=== PATIENT | male | born 1950 | race African-American/Black ===

== ENCOUNTER 2018-07-15 19:53 | Inpatient (IN) | payer MEDICARE, MEDICAID ==
[~2018-07-15] VITALS: Ht 180.3 cm; Wt 83.9 kg
[~2018-07-15 19:53] MED LIST: LISINOPRIL10 MG GT; MULTI-DELYN237 ML GT; NITRO-BID1 GM TOPIC; NORMODYNE200 MG GT; NORVASC5 MG GT; TRAMADOL HCL50 MG GT; VITAMIN C500 M1 GT
[2018-07-15] MEDS ORDERED: Pantoprazole Inj IV ONE (20:15)
[2018-07-15 20:25] VITALS: BP 144/67
--- NOTE | 2018-07-15 20:25 | NUR ---
ED Nurse Note: pt brought in by ambulance from [facility] c/o diarrhea x 2 since yesterday per EMS report, pt denies diarrhea at this time. pt AA&ox1, gcs=15, confused, skin warm and dry, resp even and unlabored on RA, -n/v/d, +gtube, leftside weakness noted, on bedrest, NSR, vss, on cardiac technologist, will cont monitor.
[2018-07-15] MEDS ORDERED: TYLENOL EXTRA500 MG GT (21:10)
[2018-07-15] MEDS ORDERED: METFORMIN HCL1000 M1 ORAL (21:10)
[2018-07-15] MEDS ORDERED: JARDIANCE PO (21:10)
[2018-07-15] MEDS ORDERED: COLACE100 MG GT (21:10)
[2018-07-15] MEDS ORDERED: ACETAMINOPHEN325 M1 GT (21:10)
[2018-07-15] MEDS ORDERED: FLEET ENEMA133 ML RECTAL (21:10)
[2018-07-15] MEDS ORDERED: ARTIFICIAL TEAR15 ML BOTH EYES (21:10)
[2018-07-15] MEDS ORDERED: DUONEB 0.5-3(2.53 ML HHN (21:10)
[2018-07-15 21:21] LABS: ANION GAP 11 mmol/L (5-15); BLOOD UREA NITROGEN 10 mg/dL (7-18); CALCIUM 9.9 MG/DL (8.5-10.1); CARBON DIOXIDE 21 MMOL/L (21-32); CHLORIDE 106 MMOL/L (98-107); CREATININE 0.8 MG/DL (0.55-1.30); POTASSIUM 5.4 MMOL/L (3.5-5.1); SODIUM 138 MMOL/L (136-145)
[2018-07-15 21:25] LABS: ALANINE AMINOTRANSFERASE 134 U/L (12-78); ALBUMIN 3.7 G/DL (3.4-5.0); ALBUMIN/GLOBULIN RATIO 0.7 (1.0-2.7); ALKALINE PHOSPHATASE 80 U/L (46-116); ASPARTATE AMINO TRANSFERASE 109 U/L (15-37); BILIRUBIN,TOTAL 0.7 MG/DL (0.2-1.0)
--- NOTE | 2018-07-15 21:30 | NUR ---
ED Nurse Note: PT CLEANED AND CHANGED.
[2018-07-15 21:31] LABS: BASOPHILS % (AUTO) 0.9 % (0.0-2.0); EOSINOPHILS % (AUTO) 1.5 % (0.0-3.0); HEMOGLOBIN 16.6 G/DL (14.2-18.0); LYMPHOCYTES % (AUTO) 23.4 % (20.0-45.0); MEAN CORPUSCULAR VOLUME 80 FL (80-99); MONOCYTES % (AUTO) 6.8 % (1.0-10.0); NEUTROPHILS % (AUTO) 67.4 % (45.0-75.0); PLATELET COUNT 228 K/UL (150-450); RED BLOOD COUNT 6.41 M/UL (4.70-6.10); RED CELL DISTRIBUTION WIDTH 13.4 % (11.6-14.8)
--- NOTE | 2018-07-15 22:26 | NUR ---
NURSE NOTES: Received report from JESUSITA Hamilton (ER), pt with admitted diarrhea X 2 possible GI Bleed, no diarrhea episodes in ER per Joy pt A/O X 1 to self, confused, skin intact & Gtube flushes per Joy pt with RT hand 20g saline lock, room air, will check vitals, contact Dr. Chao for orders when pt is on the floor.
--- NOTE | 2018-07-15 22:27 | Emergency Room Report ---
History of Present Illness General Chief Complaint: Gastrointestinal Illness Source: Patient, Medical Record, EMS Present Illness HPI Patient presents emergency department today complaint 2 days of coffee-ground emesis associated epigastric pain. He denies any diarrhea. Denies any melena. Symptoms noted to be moderate to severe. Patient's currently in a prison. Patient's primary care physician is Dr. Saige Sifuentes. Symptoms noted to moderate. Patient denies any fever cough runny nose sore throat dysuria or urinary frequency. No prior episodes was noted. Patient is not very good historian. Patient does have a G-tube which is used to infuse water. He is able to eat regular food orally. No other modifying factors. No other associated signs and symptoms. No other complaints were noted. Allergies: Coded Allergies: No Known Allergies (Unverified , 09/28/13) Patient History Past Medical History: DM, HTN, CAD, CVA/TIA, other - BPH Past Surgical History: other - G-tube Social History: Denies: smoking, alcohol use, drug use Reviewed Nursing Documentation: PMH: Agreed; PSxH: Agreed Nursing Documentation-PMH Past Medical History: No History, Except For Hx Cardiac Problems: Yes Hx Hypertension: Yes Hx Diabetes: Yes Hx Cancer: Yes - BPH Hx Gastrointestinal Problems: Yes - G-tube Hx Neurological Problems: Yes Hx Cerebrovascular Accident: Yes - tia Hx Traumatic Brain Injury: Yes - CSF; IHF Hx Dysphasia: Yes 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 Review of Systems All Other Systems: negative except mentioned in HPI Physical Exam Vital Signs Date Time Temp Pulse Resp B/P (MAP) Pulse Ox O2 Delivery O2 Flow Rate FiO2 07/15/18 19:57 98.2 102 20 142/93 94 Room Air Sp02 EP Interpretation: reviewed, normal General Appearance: normal inspection, well appearing, no apparent distress, alert Head: atraumatic Eyes: bilateral eye normal inspection ENT: normal ENT inspection, hearing grossly normal, normal voice Neck: normal inspection, full range of motion, supple, no bony tend Respiratory: normal inspection, lungs clear, normal breath sounds, no respiratory distress, no retraction, no wheezing Cardiovascular #1: regular rate, rhythm, no edema Gastrointestinal: normal inspection, normal bowel sounds, non tender, soft, no guarding, no hernia, other - G-tube in place Genitourinary: no CVA tenderness Musculoskeletal: normal inspection, back normal, normal range of motion Neurologic: normal inspection, alert, responsive, speech normal Psychiatric: normal inspection, judgement/insight normal, mood/affect normal Skin: normal inspection, normal color, no rash Medical Decision Making Diagnostic Impression: Primary Impression: GI bleed Additional Impression: Coffee ground emesis ER Course Patient presents emergency department today complaining of vomiting. Differential considerations include acute Lexxel abnormality, gastritis, pancreatitis, cholecystitis, bowel obstruction just name a few.Given the severity of the patient's presentation I felt this is a highly complex patient. This patient required extensive workup. Patient's laboratory workup was not impressive. CAT scan was negative. However given patient's history of coffee- ground emesis and advanced age I felt the patient required admission for further monitoring and workup. Case was discussed with Dr. Saige Sifuentes patient will be admitted for further treatment. Labs Test 07/15/18 20:50 White Blood Count 7.0 K/UL (4.8-10.8) Red Blood Count 6.41 M/UL (4.70-6.10) Hemoglobin 16.6 G/DL (14.2-18.0) Hematocrit 51.0 % (42.0-52.0) Mean Corpuscular Volume 80 FL (80-99) Mean Corpuscular Hemoglobin 25.8 PG (27.0-31.0) Mean Corpuscular Hemoglobin Concent 32.4 G/DL (32.0-36.0) Red Cell Distribution Width 13.4 % (11.6-14.8) Platelet Count 228 K/UL (150-450) Mean Platelet Volume 7.5 FL (6.5-10.1) Neutrophils (%) (Auto) 67.4 % (45.0-75.0) Lymphocytes (%) (Auto) 23.4 % (20.0-45.0) Monocytes (%) (Auto) 6.8 % (1.0-10.0) Eosinophils (%) (Auto) 1.5 % (0.0-3.0) Basophils (%) (Auto) 0.9 % (0.0-2.0) Prothrombin Time 10.8 SEC (9.30-11.50) Prothromb Time International Ratio 1.0 (0.9-1.1) Activated Partial Thromboplast Time 27 SEC (23-33) Sodium Level 138 MMOL/L (136-145) Potassium Level 5.4 MMOL/L (3.5-5.1) Chloride Level 106 MMOL/L (98-107) Carbon Dioxide Level 21 MMOL/L (21-32) Anion Gap 11 mmol/L (5-15) Blood Urea Nitrogen 10 mg/dL (7-18) Creatinine 0.8 MG/DL (0.55-1.30) Estimat Glomerular Filtration Rate > 60 mL/min (>60) Glucose Level 126 MG/DL (74-106) Calcium Level 9.9 MG/DL (8.5-10.1) Total Bilirubin 0.7 MG/DL (0.2-1.0) Aspartate Amino Transf (AST/SGOT) 109 U/L (15-37) Alanine Aminotransferase (ALT/SGPT) 134 U/L (12-78) Alkaline Phosphatase 80 U/L (46-116) Troponin I 0.012 ng/mL (0.000-0.056) Total Protein 9.1 G/DL (6.4-8.2) Albumin 3.7 G/DL (3.4-5.0) Globulin 5.4 g/dL Albumin/Globulin Ratio 0.7 (1.0-2.7) Lipase 116 U/L (73-393) Chest X-Ray Diagnostic Results Chest X-Ray Diagnostic Results : Chest X-Ray Ordered: Yes # of Views/Limited/Complete: 1 View Indication: Shortness of Breath EP Interpretation: Yes Interpretation: no consolidation, no effusion, no pneumothorax, no acute cardiopulmonary disease Impression: No acute disease Electronically Signed by: Electronically signed by Dann Read MD CT/MRI/US Diagnostic Results CT/MRI/US Diagnostic Results : Imaging Test Ordered: CT scan and pelvis: Negative Last Vital Signs Date Time Temp Pulse Resp B/P (MAP) Pulse Ox O2 Delivery O2 Flow Rate FiO2 07/15/18 20:25 98.2 82 18 144/67 98 Room Air Status: improved Disposition: ADMITTED INPATIENT Condition: Serious Referrals: Marielena Velarde MD (PCP) Dann Read MD Jul 15, 2018 22:27
--- NOTE | 2018-07-15 22:28 | NUR ---
ED Nurse Note: REPORT GIVEN TO JESUSITA TAYLOR FROM [facility].
[2018-07-15 22:30] VITALS: BP 142/68
[2018-07-15 22:32] LABS: APPEARANCE,URINE CLEAR; BILIRUBIN, URINE NEGATIVE (NEGATIVE); GLUCOSE, URINE (UA) 4+ (NEGATIVE); KETONES,URINE 2+ (NEGATIVE); LEUKOCYTE ESTERASE ,URINE NEGATIVE (NEGATIVE); NITRITE,URINE NEGATIVE (NEGATIVE); PH,URINE 5 (4.5-8.0); PROTEIN,URINE 3+ (NEGATIVE); UROBILINOGEN,URINE NORMAL MG/DL (0.0-1.0)
[2018-07-15 22:33] LABS: COLOR,URINE YELLOW
--- NOTE | 2018-07-15 22:41 | NUR ---
ED Nurse Note: PT TRANSFERRED TO [place], ALL BELONGINGS SENT W/ PT. PT VSS, DAUGHTER AT THE BEDSIDE. IV INTACT AND PATENT.
--- NOTE | 2018-07-15 22:45 | NUR ---
NURSE NOTES: Pt brought up from ER, pt had no belongings, sheet signed by daughter Kerline, pt vitals taken, daughter at bedside able to answer questions about her father, pt A/O 1-2 confused at times, bed in lowest position, call light within reach, will continue to monitor, called Dr Velarde awaiting admitting orders. Addendum: 07/15/18 at 2335 by FISH FLAHERTY RN NURSE NOTES: pt Gtube in place
[2018-07-16] VITALS: BP 131/91
[2018-07-16 04:00] VITALS: BP 131/93
[2018-07-16 07:06] LABS: BASOPHILS % (AUTO) 0.8 % (0.0-2.0); EOSINOPHILS % (AUTO) 0.6 % (0.0-3.0); HEMATOCRIT 47.1 % (42.0-52.0); HEMOGLOBIN 15.5 G/DL (14.2-18.0); LYMPHOCYTES % (AUTO) 28.7 % (20.0-45.0); MEAN CORPUSCULAR VOLUME 80 FL (80-99); MONOCYTES % (AUTO) 7.1 % (1.0-10.0); NEUTROPHILS % (AUTO) 62.9 % (45.0-75.0); PLATELET COUNT 219 K/UL (150-450); RED BLOOD COUNT 5.89 M/UL (4.70-6.10); RED CELL DISTRIBUTION WIDTH 13.7 % (11.6-14.8); WHITE BLOOD COUNT 7.2 K/UL (4.8-10.8)
[2018-07-16 07:23] LABS: ANION GAP 10 mmol/L (5-15); BLOOD UREA NITROGEN 13 mg/dL (7-18); CALCIUM 9.4 MG/DL (8.5-10.1); CARBON DIOXIDE 22 MMOL/L (21-32); CHLORIDE 108 MMOL/L (98-107); POTASSIUM 3.9 MMOL/L (3.5-5.1); SODIUM 140 MMOL/L (136-145)
--- NOTE | 2018-07-16 07:29 | NUR ---
HAND-OFF: Report given to JESUSITA Franco.
--- NOTE | 2018-07-16 07:40 | NUR ---
NURSE NOTES: Patient on room air, no sign of distress and shortness of breath; NPO sing on head of the bed; IV R-Hand running fluid; bed at lowest position, side rails up x2, breaks engaged; will check blood sugar as scheduled. Call light within reach; will keep monitoring.
[2018-07-16 08:00] VITALS: BP 126/87
[2018-07-16] MEDS: Pantoprazole Inj IVP SCH (10:00)
[2018-07-16 12:00] VITALS: BP_SYST 118; BP_SYST 141; BP_DIAS 78; BP_DIAS 81
[2018-07-16] MEDS ORDERED: 1/2 NS 1000ml IV ONE (15:48)
[2018-07-16 16:00] VITALS: BP 120/81
--- NOTE | 2018-07-16 16:02 | NUR ---
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
--- NOTE | 2018-07-16 19:35 | NUR ---
HAND-OFF: Report given to JESUSITA Parsons.
--- NOTE | 2018-07-16 19:36 | NUR ---
NURSE NOTES: Pt received awake, not as talkative as he was last night, IV in place but keeps beeping will change tubing, no c/o pain or signs of distress at the moment, call light within reach, bed in lowest position, visitor at bedside, will continue to monitor.
[2018-07-16 20:00] VITALS: BP 137/87
--- NOTE | 2018-07-16 21:30 | History and Physical Report ---
DATE OF ADMISSION: 07/15/2018 CHIEF COMPLAINT: Coffee-ground emesis. HISTORY OF PRESENT ILLNESS: This is a 68-year-old male from [facility], who was transferred by paramedics due to 2 days of coffee-ground emesis. The patient is nonverbal. Information is retrieved from the nursing staff. The patient has a G-tube. The patient himself is confused and unable to give any further information. PAST MEDICAL HISTORY: 1. Type 2 diabetes mellitus. 2. Hypertensive cardiovascular disease. 3. Coronary artery disease. 4. Status post CVA. MEDICATIONS: 1. Tube feeding. 2. Multivitamins. 3. Artificial tears. 4. Colace. 5. DuoNeb inhalation. 6. Fleet Enema as needed. 7. Jardiance. 8. Lisinopril. 9. Metformin. 10. Nitro-Bid ointment. 11. Norvasc. 12. Trandate. 13. Tylenol p.r.n. ALLERGIES: No known allergies. SOCIAL HISTORY: Unable to obtain due to his mental status. FAMILY HISTORY: Unable to obtain due to his mental status. REVIEW OF SYSTEMS: Unable to obtain due to his mental status. PHYSICAL EXAMINATION: GENERAL: This is an elderly male, who is in no acute distress. VITAL SIGNS: Blood pressure 118/81, pulse 85 and regular, respirations 20, and temperature 98.5. HEENT: The head is normocephalic and atraumatic. Pupils are equal, round, and reactive to light and accommodation consensually. NECK: Supple. Trachea midline. There was no lymphadenopathy or thyromegaly. LUNGS: Clear to auscultation and percussion. HEART: Regular rate and rhythm without rubs, murmurs, or gallops. ABDOMEN: Soft and nontender. Bowel sounds were active. There is a G-tube. EXTREMITIES: No clubbing, cyanosis, or edema. NEUROLOGICAL: He is confused, but responsive. There were no gross focal findings. LABORATORY AND ANCILLARY DATA: CBC is within normal limits. Chemistry, yesterday potassium 5.4 and today is 3.9, otherwise within normal limits. ASSESSMENT: 1. Gastrointestinal bleed, etiology unclear. 2. Type 2 diabetes mellitus. 3. Hypertensive cardiovascular disease. 4. Coronary artery disease. 5. Status post CVA. PLAN: 1. Keep NPO. 2. GI consult. Marielena Velarde M.D. DR: CANDICE JOB#: [id number] CC:
--- NOTE | 2018-07-16 23:00 | Consultation ---
DATE OF CONSULTATION: 07/16/2018 GASTROENTEROLOGY CONSULTATION CONSULTING PHYSICIAN: Manuel Carrizales M.D. REFERRING PHYSICIAN: Marielena Velarde M.D. CHIEF COMPLAINT: Coffee-ground emesis. HISTORY OF PRESENT ILLNESS: Most of the history is per at the bedside. This is a very pleasant 68-year-old male, [facility] patient, with history of CVA, dysphagia, has a G-tube, but he actually eats according to the pureed diet. The G-tube has been only used for flushing and for medication. Admitted to the hospital with coffee-ground emesis and also the patient has been having complaint of diarrhea for the last few days. The diarrhea is nonbloody. There are no recent p.o. antibiotics, but the patient was given some antibiotics for his eyes. PAST MEDICAL HISTORY: 1. Diabetes. 2. Hypertension. 3. Coronary artery disease. 4. CVA. 5. Dysphagia, G-tube placement. 6. BPH. ALLERGIES: No known drug allergies. MEDICATIONS: Please see medication reconciliation list. FAMILY HISTORY: Noncontributory. REVIEW OF SYSTEMS: Limited. SOCIAL HISTORY: Currently lives in a [facility]. No recent history of tobacco, alcohol, or drug abuse. PHYSICAL EXAMINATION: VITAL SIGNS: Temperature 98.5, pulse rate 85, respirations 20, and blood pressure is 118/81. HEENT: Normocephalic and atraumatic. No scleral icterus. NECK: Supple. No obvious evidence of lymphadenopathy. CARDIOVASCULAR: Regular rate and rhythm. Plus S1 and S2. No obvious murmur. LUNGS: Clear to auscultation bilaterally. ABDOMEN: Positive bowel sounds. Soft and nontender. No rebound. No guarding. No peritoneal signs. G-tube in place. EXTREMITIES: No cyanosis, no clubbing, no edema. LABORATORY DATA: White count 7.2, hemoglobin 16, hematocrit 47, and platelet count 219,000. Chem-7, sodium 140, potassium , BUN is 13, creatinine is 1.0, glucose is 110. AST of 109, ALT of 134. ASSESSMENT: 1. Coffee-ground emesis. 2. Dysphagia with G-tube. 3. Abnormal liver function tests. 4. Diarrhea. PLAN: 1. Given stable hemoglobin and hematocrit, we are going to start the patient on diet. 2. Plan for the endoscopy on Wednesday to rule out upper GI bleeding. Discussed with and she agreed and we will place the patient on Protonix. 3. Abnormal liver function tests. Review of the chart in 2009 showed also the patient at that time had abnormal liver function tests. We will plan to send serology for hepatitis, abdominal ultrasound, and repeat liver function tests for tomorrow. 4. In terms of diarrhea, we are going to send the stool studies. I want to thank Dr. Velarde for this kind referral. Manuel Carrizales M.D. DR: Nate JOB#: [id number] CC: Marielena Velarde M.D.; Fax#: [phone]
[2018-07-17] VITALS: BP 130/92
[2018-07-17 04:00] VITALS: BP 120/80
[2018-07-17 06:49] LABS: EOSINOPHILS % (AUTO) 2.1 % (0.0-3.0); HEMATOCRIT 45.8 % (42.0-52.0); HEMOGLOBIN 14.7 G/DL (14.2-18.0); LYMPHOCYTES % (AUTO) 51.2 % (20.0-45.0); MEAN CORPUSCULAR VOLUME 81 FL (80-99); MONOCYTES % (AUTO) 11.1 % (1.0-10.0); NEUTROPHILS % (AUTO) 34.6 % (45.0-75.0); PLATELET COUNT 225 K/UL (150-450); RED BLOOD COUNT 5.67 M/UL (4.70-6.10); RED CELL DISTRIBUTION WIDTH 13.7 % (11.6-14.8); WHITE BLOOD COUNT 5.4 K/UL (4.8-10.8)
[2018-07-17 06:50] LABS: INR 1.1 (0.9-1.1)
[2018-07-17 06:59] LABS: PHOSPHORUS 3.1 MG/DL (2.5-4.9)
--- NOTE | 2018-07-17 07:09 | NUR ---
HAND-OFF: Report given to JESUSITA Franco.
--- NOTE | 2018-07-17 07:10 | NUR ---
NURSE NOTES: Patient awake, confused; on room air, no sign of shortness of breath, no sign of distress; NPO and sign of the top of the bed; IV R-wrist fluid running; heel protector on both lower extremities in place; G-Tube in place, flushes well; bed at lowest position, side rails up x2, breaks engaged, bed alarm on. Will keep monitoring blood sugar as scheduled and will keep monitoring patient. OB stool pending.
[2018-07-17 07:11] LABS: ALANINE AMINOTRANSFERASE 115 U/L (12-78); ALBUMIN 3.2 G/DL (3.4-5.0); ALBUMIN/GLOBULIN RATIO 0.7 (1.0-2.7); ALKALINE PHOSPHATASE 63 U/L (46-116); ANION GAP 11 mmol/L (5-15); ASPARTATE AMINO TRANSFERASE 93 U/L (15-37); BILIRUBIN,TOTAL 0.6 MG/DL (0.2-1.0); BLOOD UREA NITROGEN 17 mg/dL (7-18); CALCIUM 9.2 MG/DL (8.5-10.1); CARBON DIOXIDE 23 MMOL/L (21-32); CHLORIDE 109 MMOL/L (98-107); CREATININE 1.1 MG/DL (0.55-1.30); POTASSIUM 3.8 MMOL/L (3.5-5.1); SODIUM 143 MMOL/L (136-145)
[2018-07-17 08:00] VITALS: BP 126/77
[2018-07-17] MEDS: Pantoprazole Inj IVP SCH (09:20)
--- NOTE | 2018-07-17 11:36 | General Progress Note ---
Assessment/Plan Problem List: (1) Elevated LFTs ICD Codes: R94.5 - Abnormal results of liver function studies SNOMED: 248586189, 422575847 (2) GT (3) Coffee ground emesis ICD Codes: K92.0 - Hematemesis SNOMED: 18951674 Assessment/Plan ppi stable H&H pending EGd in AM trending down LFTS fu hepatitis panel fu abd us f Subjective ROS Limited/Unobtainable: No Allergies: Coded Allergies: No Known Allergies (Unverified , 09/28/13) Objective Last 24 Hour Vital Signs Date Time Temp Pulse Resp B/P (MAP) Pulse Ox O2 Delivery O2 Flow Rate FiO2 07/17/18 09:00 Room Air 07/17/18 08:00 97.1 71 20 126/77 (93) 98 07/17/18 04:00 99.1 78 18 120/80 (93) 95 07/17/18 00:00 97.8 84 18 130/92 (105) 94 84 07/16/18 21:00 Room Air 07/16/18 20:00 99.5 86 17 137/87 (104) 96 07/16/18 16:00 98.4 79 20 120/81 (94) 99 79 07/16/18 12:00 98.5 85 20 118/81 (93) 96 85 Intake and Output 07/16/18 07/17/18 19:00 07:00 Intake Total 715 ml 780 ml Balance 715 ml 780 ml Intake IV Total 715 ml 780 ml # Voids 2 Laboratory Tests 07/17/18 05:10: White Blood Count 5.4, Red Blood Count 5.67, Hemoglobin 14.7, Hematocrit 45.8, Mean Corpuscular Volume 81, Mean Corpuscular Hemoglobin 25.9L, Mean Corpuscular Hemoglobin Concent 32.0, Red Cell Distribution Width 13.7, Platelet Count 225, Mean Platelet Volume 7.6, Neutrophils (%) (Auto) 34.6L, Lymphocytes (%) (Auto) 51.2H, Monocytes (%) (Auto) 11.1H, Eosinophils (%) (Auto) 2.1, Basophils (%) ( Auto) 1.0, Prothrombin Time 11.3, Prothromb Time International Ratio 1.1, Activated Partial Thromboplast Time 28, Sodium Level 143, Potassium Level 3.8, Chloride Level 109H, Carbon Dioxide Level 23, Anion Gap 11, Blood Urea Nitrogen 17, Creatinine 1.1, Estimat Glomerular Filtration Rate > 60, Glucose Level 79, Calcium Level 9.2, Phosphorus Level 3.1, Magnesium Level 1.7L, Total Bilirubin 0.6, Aspartate Amino Transf (AST/SGOT) 93H, Alanine Aminotransferase (ALT/SGPT) 115H, Alkaline Phosphatase 63, Total Protein 7.7, Albumin 3.2L, Globulin 4.5, Albumin/Globulin Ratio 0.7L, Amylase Level 57, Lipase 85, Hepatitis A IgM Antibody [Pending], Hepatitis B Surface Antigen [Pending], Hepatitis B Core IgM Antibody [Pending], Hepatitis C Antibody [Pending] Height (Feet): 5 Height (Inches): 11.00 Weight (Pounds): 185 General Appearance: no apparent distress EENT: normal ENT inspection Neck: supple Cardiovascular: normal rate Respiratory/Chest: decreased breath sounds Abdomen: normal bowel sounds, non tender, soft Extremities: non-tender Manuel Carrizales MD Jul 17, 2018 11:36
--- NOTE | 2018-07-17 11:49 | NUR ---
NURSE NOTES: Patient's Albumin 3.2 and Magnesium 1.7 result is reported to MD Stoll. Will keep monitoring.
[2018-07-17 12:00] VITALS: BP 123/67
--- NOTE | 2018-07-17 12:35 | General Progress Note ---
Assessment/Plan Assessment/Plan GI bleed -per GI Needs bedside swallow Subjective Allergies: Coded Allergies: No Known Allergies (Unverified , 09/28/13) Subjective No new c/o Objective Last 24 Hour Vital Signs Date Time Temp Pulse Resp B/P (MAP) Pulse Ox O2 Delivery O2 Flow Rate FiO2 07/17/18 09:00 Room Air 07/17/18 08:00 97.1 71 20 126/77 (93) 98 07/17/18 04:00 99.1 78 18 120/80 (93) 95 07/17/18 00:00 97.8 84 18 130/92 (105) 94 84 07/16/18 21:00 Room Air 07/16/18 20:00 99.5 86 17 137/87 (104) 96 07/16/18 16:00 98.4 79 20 120/81 (94) 99 79 Intake and Output 07/16/18 07/17/18 19:00 07:00 Intake Total 715 ml 780 ml Balance 715 ml 780 ml Intake IV Total 715 ml 780 ml # Voids 2 Laboratory Tests 07/17/18 05:10: White Blood Count 5.4, Red Blood Count 5.67, Hemoglobin 14.7, Hematocrit 45.8, Mean Corpuscular Volume 81, Mean Corpuscular Hemoglobin 25.9L, Mean Corpuscular Hemoglobin Concent 32.0, Red Cell Distribution Width 13.7, Platelet Count 225, Mean Platelet Volume 7.6, Neutrophils (%) (Auto) 34.6L, Lymphocytes (%) (Auto) 51.2H, Monocytes (%) (Auto) 11.1H, Eosinophils (%) (Auto) 2.1, Basophils (%) ( Auto) 1.0, Prothrombin Time 11.3, Prothromb Time International Ratio 1.1, Activated Partial Thromboplast Time 28, Sodium Level 143, Potassium Level 3.8, Chloride Level 109H, Carbon Dioxide Level 23, Anion Gap 11, Blood Urea Nitrogen 17, Creatinine 1.1, Estimat Glomerular Filtration Rate > 60, Glucose Level 79, Calcium Level 9.2, Phosphorus Level 3.1, Magnesium Level 1.7L, Total Bilirubin 0.6, Aspartate Amino Transf (AST/SGOT) 93H, Alanine Aminotransferase (ALT/SGPT) 115H, Alkaline Phosphatase 63, Total Protein 7.7, Albumin 3.2L, Globulin 4.5, Albumin/Globulin Ratio 0.7L, Amylase Level 57, Lipase 85, Hepatitis A IgM Antibody [Pending], Hepatitis B Surface Antigen [Pending], Hepatitis B Core IgM Antibody [Pending], Hepatitis C Antibody [Pending] Height (Feet): 5 Height (Inches): 11.00 Weight (Pounds): 185 Objective CV RR Lungs CTA Abd SNT. BS +. PEG in Marielena Velarde MD Jul 17, 2018 12:35
--- NOTE | 2018-07-17 14:55 | NUR ---
NURSE NOTES: I called Louisa Whitehead, patient's to get a consent over the phone for the Esophagogastroduodenoscopy which is planed for tomorrow by MD Stoll. I left a voice message regarding my call and left my name and call back number. Will keep trying.
--- NOTE | 2018-07-17 15:33 | NUR ---
NURSE NOTES: Patient's called back to give consent for EGD, verified by charge nurse, Richy. Consent on file.
[2018-07-17 16:00] VITALS: BP 121/73
--- NOTE | 2018-07-17 16:27 | NUR ---
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 Negative for dilated bile ducts. Incidental finding left lower pole renal cyst. IS:NS x1L IV PROTONIX 40mg IV MED/SURG STATUS
--- NOTE | 2018-07-17 19:33 | NUR ---
HAND-OFF: Report given to JESUSITA Perez.
--- NOTE | 2018-07-17 19:33 | NUR ---
NURSE NOTES: Pt received in semi fowlers position, resting at this time. Alert x2. IV site intact, patent. Bed locked in lowest position, side rails x 2. In no acute distress. Will continue to monitor. No complaints at this time. Pt on NPO status to be maintained. Will continue process plans.
[2018-07-17 20:00] VITALS: BP 135/88
[2018-07-18] VITALS (10 sets, daily range): BP systolic 114–149; BP diastolic 71–91
[2018-07-18 06:33] LABS: HEMATOCRIT 42.1 % (42.0-52.0); HEMOGLOBIN 13.3 G/DL (14.2-18.0); MEAN CORPUSCULAR VOLUME 81 FL (80-99); PLATELET COUNT 206 K/UL (150-450); RED BLOOD COUNT 5.17 M/UL (4.70-6.10); RED CELL DISTRIBUTION WIDTH 13.2 % (11.6-14.8); WHITE BLOOD COUNT 7.5 K/UL (4.8-10.8)
[2018-07-18 06:57] LABS: ALANINE AMINOTRANSFERASE 110 U/L (12-78); ALBUMIN 3.2 G/DL (3.4-5.0); ALBUMIN/GLOBULIN RATIO 0.7 (1.0-2.7); ALKALINE PHOSPHATASE 55 U/L (46-116); ANION GAP 13 mmol/L (5-15); ASPARTATE AMINO TRANSFERASE 96 U/L (15-37); BILIRUBIN,TOTAL 0.5 MG/DL (0.2-1.0); BLOOD UREA NITROGEN 17 mg/dL (7-18); CALCIUM 8.9 MG/DL (8.5-10.1); CARBON DIOXIDE 22 MMOL/L (21-32); CHLORIDE 109 MMOL/L (98-107); POTASSIUM 3.7 MMOL/L (3.5-5.1); SODIUM 144 MMOL/L (136-145)
--- NOTE | 2018-07-18 07:33 | NUR ---
HAND-OFF: Report given to JESUSITA Nicole
[2018-07-18] MEDS ORDERED: Atropine Inj 1mg/10ml Syr IV PRN (07:45)
[2018-07-18] MEDS ORDERED: DiphenhydrAMINE 50mg/ml Inj IVP PRN (07:45)
[2018-07-18] MEDS ORDERED: fentaNYL 100 mcg/2 mL IV PRN (07:45)
[2018-07-18] MEDS ORDERED: Midazolam 2mg/2ml Inj IVP PRN (07:45)
--- NOTE | 2018-07-18 07:46 | NUR ---
NURSE NOTES: Patient received in stable condition, resting in bed. Responds appropriately, breathing unlabored on room air. No signs of respiratory distress, denies pain. IV site patent, fkluids running at 65cc/hr. Bed locked in lowest position, hob elevated for aspiration precautions. SCD's on. Call light placed within reach, will continue to monitor.
--- NOTE | 2018-07-18 07:49 | Anethesia Preoperative Eval ---
Anesthesia Pre-op PMH/ROS General Date of Evaluation: Jul 18, 2018 Time of Evaluation: 07:43 Anesthesiologist: eleuterio ASA Score: ASA 4 Mallampati Score Class I : Soft palate, uvula, fauces, pillars visible Class II: Soft palate, uvula, fauces visible Class III: Soft palate, base of uvula visible Class IV: Only hard plate visible Mallampati Classification: Class II Surgeon: danilo Diagnosis: gi bleed Surgical Procedure: egd w/bx Social History: smoking - nonsmoker Family History: no anesthesia problems Allergies: Coded Allergies: No Known Allergies (Unverified , 09/28/13) Medications: see eMAR Patient NPO?: Yes Past Medical History Cardiovascular: Reports: HTN, other - hypercholesterolemia, Gastrointestinal/Genitourinary: Reports: other - dysphagia, pud, prostate cancer, g-tube Neurologic/Psychiatric: Reports: CVA, TIA, other - v/p shunt, dysphasia, traumatic brain injury Endocrine: Reports: DM PSxH Narrative: v/p shunt, g-tube placement Anesthesia Pre-op Phys. Exam Physician Exam Last Vital Signs Date Time Temp Pulse Resp B/P (MAP) Pulse Ox O2 Delivery O2 Flow Rate FiO2 07/18/18 04:00 98.3 68 18 149/83 (105) 95 07/17/18 21:00 Room Air Constitutional: NAD Neurologic: CN 2-12 intact Cardiovascular: RRR Respiratory: CTA Gastrointestinal: S/NT/ND Airway Exam Mallampati Score: Class II MO: limited Neck: flexible TMD: 2fb ROM: limited Anesthesia Pre-op A/P Labs Hematology Test 07/18/18 05:05 White Blood Count 7.5 K/UL (4.8-10.8) Red Blood Count 5.17 M/UL (4.70-6.10) Hemoglobin 13.3 G/DL (14.2-18.0) L Hematocrit 42.1 % (42.0-52.0) Mean Corpuscular Volume 81 FL (80-99) Mean Corpuscular Hemoglobin 25.8 PG (27.0-31.0) L Mean Corpuscular Hemoglobin Concent 31.6 G/DL (32.0-36.0) L Red Cell Distribution Width 13.2 % (11.6-14.8) Platelet Count 206 K/UL (150-450) Mean Platelet Volume 6.3 FL (6.5-10.1) L Neutrophils (%) (Auto) % (45.0-75.0) Lymphocytes (%) (Auto) % (20.0-45.0) Monocytes (%) (Auto) % (1.0-10.0) Eosinophils (%) (Auto) % (0.0-3.0) Basophils (%) (Auto) % (0.0-2.0) Neutrophils % (Manual) Pending Lymphocytes % (Manual) Pending Platelet Estimate Pending Platelet Morphology Pending Chemistry Test 07/18/18 05:05 Sodium Level 144 MMOL/L (136-145) Potassium Level 3.7 MMOL/L (3.5-5.1) Chloride Level 109 MMOL/L (98-107) H Carbon Dioxide Level 22 MMOL/L (21-32) Anion Gap 13 mmol/L (5-15) Blood Urea Nitrogen 17 mg/dL (7-18) Creatinine 1.0 MG/DL (0.55-1.30) Estimat Glomerular Filtration Rate > 60 mL/min (>60) Glucose Level 60 MG/DL (74-106) L Calcium Level 8.9 MG/DL (8.5-10.1) Total Bilirubin 0.5 MG/DL (0.2-1.0) Aspartate Amino Transf (AST/SGOT) 96 U/L (15-37) H Alanine Aminotransferase (ALT/SGPT) 110 U/L (12-78) H Alkaline Phosphatase 55 U/L (46-116) Total Protein 7.5 G/DL (6.4-8.2) Albumin 3.2 G/DL (3.4-5.0) L Globulin 4.3 g/dL Albumin/Globulin Ratio 0.7 (1.0-2.7) L Risk Assessment & Plan Assessment: asa4 Plan: mac Status Change Before Surgery: No Pre-Antibiotics Drug: Gely Duvall MD Jul 18, 2018 07:49
[2018-07-18] MEDS ORDERED: Potassium Chloride 10 MEQ in D5 1/2NS 1,000 ML IV SCH (08:30)
[2018-07-18] MEDS: Pantoprazole Inj IVP SCH (09:00)
--- NOTE | 2018-07-18 10:26 | Diagnostic Imaging Report ---
Indication: Abdominal pain, abnormal liver function tests Technique: Ramirez-scale and duplex images of the upper abdomen were obtained. Doppler interrogation of the hepatic and pancreatic vessels Comparison: Reference made to abdomen pelvis CT 07/15/2018 Findings: Exam is limited due to limited ability of the patient to cooperate Gallbladder demonstrates a stone at the gallbladder neck. No wall thickening nor pericholecystic fluid. Sonographic Quezada's sign could not be assessed as patient is an communicative. Common bile duct measures 4 mm in diameter. No intrahepatic biliary ductal dilatation. Liver demonstrates normal echogenicity, no focal abnormality. Portal vein and hepatic veins are patent. Pancreas is unremarkable. The spleen cannot be visualized. Left kidney measures 10.1 cm in length. Right kidney measures 10.6 cm length. Both kidneys demonstrate normal echogenicity. There is no hydronephrosis. Echogenic focus in the right kidney presumably is artifactual, as no calculi are demonstrated on recent CT scan. The left kidney demonstrates a 3.1 cm cyst in the lower pole. The upper pole cyst demonstrated on recent CT scan is not demonstrated on this exam . Abdominal aorta is partially obscured by bowel gas, visualized portions are non-aneurysmal . Impression: Limited exam, as described. Note inability to visualize the spleen and portions of the abdominal aorta Cholelithiasis, also described on recent CT scan. Negative for dilated bile ducts Incidental finding left lower pole renal cyst
--- NOTE | 2018-07-18 11:09 | General Progress Note ---
Assessment/Plan Assessment/Plan GI bleed -per GI Needs bedside swallow Subjective Allergies: Coded Allergies: No Known Allergies (Unverified , 09/28/13) Subjective No new c/o Objective Last 24 Hour Vital Signs Date Time Temp Pulse Resp B/P (MAP) Pulse Ox O2 Delivery O2 Flow Rate FiO2 07/18/18 09:00 Room Air 07/18/18 08:00 97.3 66 20 136/89 (105) 95 07/18/18 04:00 98.3 68 18 149/83 (105) 95 07/18/18 00:00 97.7 70 18 122/85 (97) 97 07/17/18 21:00 Room Air 07/17/18 20:00 97.9 70 18 135/88 (104) 100 07/17/18 16:00 97.0 70 19 121/73 (89) 97 07/17/18 12:00 97.9 67 19 123/67 (85) 99 Intake and Output 07/17/18 07/18/18 19:00 07:00 Intake Total 65 ml Balance 65 ml Intake IV Total 65 ml Laboratory Tests 07/18/18 05:05: White Blood Count 7.5, Red Blood Count 5.17, Hemoglobin 13.3L, Hematocrit 42.1, Mean Corpuscular Volume 81, Mean Corpuscular Hemoglobin 25.8L, Mean Corpuscular Hemoglobin Concent 31.6L, Red Cell Distribution Width 13.2, Platelet Count 206, Mean Platelet Volume 6.3L, Neutrophils (%) (Auto) , Lymphocytes (%) (Auto) , Monocytes (%) (Auto) , Eosinophils (%) (Auto) , Basophils (%) (Auto) , Differential Total Cells Counted 100, Neutrophils % (Manual) 33L, Lymphocytes % (Manual) 55H, Monocytes % (Manual) 10, Eosinophils % (Manual) 1, Basophils % ( Manual) 1, Band Neutrophils 0, Platelet Estimate Adequate, Platelet Morphology Normal, Hypochromasia 1+, Sodium Level 144, Potassium Level 3.7, Chloride Level 109H, Carbon Dioxide Level 22, Anion Gap 13, Blood Urea Nitrogen 17, Creatinine 1.0, Estimat Glomerular Filtration Rate > 60, Glucose Level 60L, Calcium Level 8.9, Total Bilirubin 0.5, Aspartate Amino Transf (AST/SGOT) 96H, Alanine Aminotransferase (ALT/SGPT) 110H, Alkaline Phosphatase 55, Total Protein 7.5, Albumin 3.2L, Globulin 4.3, Albumin/Globulin Ratio 0.7L Height (Feet): 5 Height (Inches): 11.00 Weight (Pounds): 185 Objective CV RR Lungs CTA Abd SNT. BS +. PEG in Marielena Velarde MD Jul 18, 2018 11:09
[2018-07-18] MEDS ORDERED: Lidocaine 1% MPF 10mg/ml 5ml ONE (11:58)
[2018-07-18] MEDS ORDERED: Propofol 200mg/20ml IV ONE (11:58)
--- NOTE | 2018-07-18 12:08 | Pre-Procedure Note/Attestation ---
Pre-Procedure Note/Attestation Complete Prior to Procedure Planned Procedure: not applicable Procedure Narrative: egd Indications for Procedure Pre-Operative Diagnosis: GIB Attestation I attest that I discussed the nature of the procedure; its benefits; risks and complications; and alternatives (and the risks and benefits of such alternatives ), prior to the procedure, with the patient (or the patient's legal office machines sales representative). I attest that, if there was a reasonable possibility of needing a blood transfusion, the patient (or the patient's legal office machines sales representative) was given the [facility] standardized written summary, pursuant to the Souleymane Rob Blood Safety Act ([place] Health and Safety Code # 1645, as amended). I attest that I re-evaluated the patient just prior to the surgery and that there has been no change in the patient's H&P, except as documented below: Manuel Carrizales MD Jul 18, 2018 12:08
--- NOTE | 2018-07-18 12:36 | Endoscopy Procedure Note ---
Endoscopy Procedure Note General Indication for Procedure: gib Procedures Performed: EGD Operative Findings/Diagnosis: gastritis Specimen: yes Pt Tolerated Procedure Well: Yes Estimated Blood Loss: none Anesthesia Anesthesiologist: eleuterio Anesthesia: MAC Inserted Devices Implant(s) used?: No GI Core Measures 50 yrs or older w/o bx or poly: Not Applicable 10yrs. F/U not recommended: Not Applicable Manuel Carrizales MD Jul 18, 2018 12:36
--- NOTE | 2018-07-18 13:00 | Immediate Post-Op Evaluation ---
Immediate Post-Op Evalulation Immediate Post-Op Evalulation Procedure: egd w/bx Date of Evaluation: Jul 18, 2018 Time of Evaluation: 13:02 IV Fluids: 150ml d5/0.9ns Blood Products: none Estimated Blood Loss: negligible Blood Pressure Systolic: 122 Blood Pressure Diastolic: 82 Pulse Rate: 74 Respiratory Rate: 18 O2 Sat by Pulse Oximetry: 100 Temperature (Fahrenheit): 98.0 Pain Score (1-10): 0 Nausea: No Vomiting: No Complications none Patient Status: awake, reacts, patent Hydration Status: adequate Drug: Gely Duvall MD Jul 18, 2018 13:00
--- NOTE | 2018-07-18 13:18 | 48 Hour Post Anesthesia Eval ---
Post Anesthesia Evaluation Procedure: egd w/bx Date of Evaluation: Jul 18, 2018 Time of Evaluation: 13:04 Blood Pressure Systolic: 121 0: 81 Pulse Rate: 76 Respiratory Rate: 18 Temperature (Fahrenheit): 98.0 O2 Sat by Pulse Oximetry: 100 Airway: patent Nausea: No Vomiting: No Pain Intensity: 0 Hydration Status: adequate Cardiopulmonary Status: stable Mental Status/LOC: patient returned to baseline Post-Anesthesia Complications: none Follow-up care needed: N/A Gely Penn MD Jul 18, 2018 13:18
--- NOTE | 2018-07-18 16:33 | NUR ---
SWIMMING POOL SERVICERTRAFFIC OPERATOR SI:GI BLEED VS: BP 149/83, P 64, T 97.5, RR 20, SpO2 100 on 3.0L NC Hgb 13.3, Chloride 109, Glucose 60, AST 96, ALT 110 IS:NS x1L IV PROTONIX 40mg IV MAGNESIUM SULFATE 100ml IVPB MED/SURG STATUS
--- NOTE | 2018-07-18 19:46 | NUR ---
NURSE NOTES: Patient received in stable condition, resting in bed. Responds appropriately, breathing unlabored on room air. No signs of respiratory distress, denies pain. IV site patent, fluids running at 65ml/hr. Bed locked in lowest position, hob elevated for aspiration precautions. SCD's on, heel floated and heel protectors on. Left arm flaccid, elevated. Call light placed within reach, will continue to monitor. Pt said in no pain at this time.
--- NOTE | 2018-07-18 19:50 | NUR ---
NURSE NOTES: RN on day shift said she gave all Mag sulfate yet 1 appears pink as not completed. Will verify in am.
--- NOTE | 2018-07-18 21:00 | Procedure Note ---
DATE OF PROCEDURE: 07/18/2018 SURGEON: Manuel Carrizales M.D. REFERRING PHYSICIAN: Marielena Velarde M.D. PROCEDURE: Upper endoscopy with biopsy. ANESTHESIA: Per Dr. Hernandez. INSTRUMENT: Olympus adult flexible upper endoscope. INDICATION: Upper GI bleeding. REASON FOR PROCEDURE: The procedure, risks, benefits, and possible consequences, including hemorrhage, aspiration, perforation and infection, and alternative treatments, were explained to the patient/legal guardian by Dr. Manuel Carrizales and the patient/legal guardian understood and accepted these risks. PROCEDURE IN DETAIL: After informed consent was obtained and the patient was adequately sedated, Olympus upper endoscope was advanced from mouth into the second portion of duodenum and retroflexion was performed in the stomach. The patient had minimal Shamika-Wolf tear at the GE junction, which is healing and no active bleeding at this time. In the stomach, there was diffuse gastritis. Random biopsy from antrum was obtained to rule out H. pylori infection. There was no evidence of any active upper GI bleeding at this time. G-tube was pushed in to see if there is any ulceration on the G-tube plug, but there was none. At this time, the upper endoscope was retrieved and procedure was terminated. SUMMARY OF FINDINGS: 1. Healing Shamika-Wolf tear. 2. Gastritis, status post biopsy. RECOMMENDATIONS: 1. Resume diet. 2. Monitor hemoglobin and hematocrit and transfuse as needed. 3. Continue on PPI daily. 4. Reflux measures. I want to thank Dr. Velarde for this kind referral. Manuel Carrizales M.D. DR: TIFFANIE JOB#: [id number] CC:
[2018-07-19] VITALS: BP 114/84
[2018-07-19 04:00] VITALS: BP_SYST 123; BP_SYST 135; BP_DIAS 74; BP_DIAS 80
[2018-07-19 05:06] VITALS: BP 112/75
[2018-07-19 06:50] LABS: BASOPHILS % (AUTO) 1.1 % (0.0-2.0); EOSINOPHILS % (AUTO) 3.5 % (0.0-3.0); HEMATOCRIT 40.3 % (42.0-52.0); HEMOGLOBIN 12.9 G/DL (14.2-18.0); LYMPHOCYTES % (AUTO) 51.6 % (20.0-45.0); MEAN CORPUSCULAR VOLUME 81 FL (80-99); MONOCYTES % (AUTO) 10.1 % (1.0-10.0); NEUTROPHILS % (AUTO) 33.7 % (45.0-75.0); PLATELET COUNT 201 K/UL (150-450); RED BLOOD COUNT 4.97 M/UL (4.70-6.10); RED CELL DISTRIBUTION WIDTH 13.2 % (11.6-14.8)
[2018-07-19 07:21] LABS: ANION GAP 9 mmol/L (5-15); BLOOD UREA NITROGEN 11 mg/dL (7-18); CALCIUM 8.5 MG/DL (8.5-10.1); CARBON DIOXIDE 24 MMOL/L (21-32); CHLORIDE 108 MMOL/L (98-107); CREATININE 0.9 MG/DL (0.55-1.30); POTASSIUM 3.7 MMOL/L (3.5-5.1); SODIUM 141 MMOL/L (136-145)
--- NOTE | 2018-07-19 07:41 | NUR ---
HAND-OFF: Report given to JESUSITA Leone.
--- NOTE | 2018-07-19 08:00 | NUR ---
NURSE NOTES: Patient is alert and oriented,patient sitting up in bed and eating breakfast,call light within reach.NO complaints at this time.
[2018-07-19 08:01] VITALS: BP 141/80
[2018-07-19] MEDS: Pantoprazole Inj IVP SCH (09:30)
--- NOTE | 2018-07-19 10:07 | NUR ---
ST NOTE: BEDSIDE SWALLOW EVAL RECEIVED BEDSIDE SWALLOW EVAL ORDER CHART REVIEWED PRIOR THE EVALUATION PT IS A 68-YEAR-OLD MALE WHO WAS ADMITTED DUE TO GI BLEED. DYSPHAGIA RISK FACTORS: H/O CVA W HEMIPARESIS AND TIA, HTN, DMII, H/O RESP FAILURE, PROSTATE CA, FORMER SMOKER, ALCOHOL. PLOF: PT RESIDES AT NURSING FACILITY. PER CHART, PT WAS ON JOSE, CCHO PUREE WITH LIQUIDS DIET, LARGE PORTION. PT ALSO HAS G-TUBE FOR MEDICATION ONLY SINCE 2012. CURRENT STATUS: PT SEEN AT BEDSIDE IN AM. ALERT, COOPERATIVE, FOLLOWS SIMPLE DIRECTIONS WITH CUES, PT ORIENTED X 1. PER EDUCATION OFFICER, PT ATE 100% THIS MORNING WITHOUT DIFFICULTY. GIVEN PO TRIALS: THIN(TSP/CUP-SMALL SIPS), PUREE(TSP) INITIAL IMPRESSION: AT LEAST MILD TO MODERATE OR WORSENED OROPHARYNGEAL DYSPHAGIA L-SIDED FACIAL DROOP AND WEAKNESS WAS NOTED. MILD INCREASED ORAL TRANSIT TIME AND OROPHARYNGEAL TRANSIT TIME, FAIR LARYNGEAL ELEVATION, NO OVERT S/S OF ASPIRATION. HAS RISK FOR SILENT ASPIRATION DUE TO H/O CVA. RECOMMENDATIONS: 1. FOR QUALITY OF LIFE, CONTINUE MOIST PUREE WITH THIN LIQUIDS DIET (PER RD, CHANGED DIET TYPE TO CCHO MEDIUM AND JOSE) 2. STRICT ASPIRATION/REFLUX PRECAUTIONS WITH 1TO1 FEEDING. 3. VIDEOSWALLOW STUDY IP OR OP. D/W PT, RNRERE, AND THE STAFF POSTED ASPIRATION/REFLUX PRECAUTIONS SIGN.
--- NOTE | 2018-07-19 11:24 | GI Progress Note ---
Assessment/Plan Problems: (1) Shamika-Wolf tear ICD Codes: K22.6 - Gastro-esophageal laceration-hemorrhage syndrome SNOMED: 195235285 (2) GI bleed ICD Codes: K92.2 - Gastrointestinal hemorrhage, unspecified SNOMED: 14754703 (3) Coffee ground emesis ICD Codes: K92.0 - Hematemesis SNOMED: 31769563 (4) Elevated LFTs ICD Codes: R94.5 - Abnormal results of liver function studies SNOMED: 320993436, 152342830 (5) GT Status: progressing Status Narrative Discussed with Dr. Carrizales. Assessment/Plan SUMMARY OF FINDINGS: 1. Healing Shamika-Wolf tear. 2. Gastritis, status post biopsy. RECOMMENDATIONS: 1. Resume diet. 2. Monitor hemoglobin and hematocrit and transfuse as needed. 3. Continue on PPI daily. 4. Reflux measures. Outpatient hepatitis C treatment The patient was seen and examined at bedside and all new and available data was reviewed in the patients chart. I agree with the above findings, impression and plan. (Patient seen earlier today. Signature stamp does not reflect patient encounter time.). - Manuel Carrizales MD Subjective Gastrointestinal/Abdominal: Reports: no symptoms Subjective limited Objective Last 24 Hour Vital Signs Date Time Temp Pulse Resp B/P (MAP) Pulse Ox O2 Delivery O2 Flow Rate FiO2 07/19/18 09:32 Room Air 07/19/18 08:01 58 20 141/80 (100) 98 07/19/18 04:00 98.9 54 17 135/80 (98) 96 07/19/18 00:00 98.9 67 18 114/84 (94) 97 07/18/18 21:00 Room Air 07/18/18 20:00 99.1 62 16 117/88 (98) 96 07/18/18 15:55 97.5 64 20 136/88 (104) 99 07/18/18 13:18 76 18 100 07/18/18 13:00 74 18 100 07/18/18 12:59 97.6 76 13 121/91 100 Nasal Cannula 3 07/18/18 12:50 74 16 120/80 100 Nasal Cannula 3 07/18/18 12:45 74 15 125/74 100 Nasal Cannula 3 07/18/18 12:42 98.0 77 18 122/82 100 Nasal Cannula 3 07/18/18 12:00 96.8 68 20 137/71 (93) 96 Intake and Output 07/18/18 07/19/18 18:59 06:59 Intake Total 620 ml 455 ml Output Total 0 ml 500 ml Balance 620 ml -45 ml Intake Oral 420 ml IV Total 200 ml 455 ml Output Urine Total 500 ml Estimated Blood Loss 0 ml # Voids 2 3 Laboratory Tests Test 07/19/18 06:20 White Blood Count 6.0 K/UL (4.8-10.8) Red Blood Count 4.97 M/UL (4.70-6.10) Hemoglobin 12.9 G/DL (14.2-18.0) L Hematocrit 40.3 % (42.0-52.0) L Mean Corpuscular Volume 81 FL (80-99) Mean Corpuscular Hemoglobin 25.9 PG (27.0-31.0) L Mean Corpuscular Hemoglobin Concent 32.0 G/DL (32.0-36.0) Red Cell Distribution Width 13.2 % (11.6-14.8) Platelet Count 201 K/UL (150-450) Mean Platelet Volume 7.2 FL (6.5-10.1) Neutrophils (%) (Auto) 33.7 % (45.0-75.0) L Lymphocytes (%) (Auto) 51.6 % (20.0-45.0) H Monocytes (%) (Auto) 10.1 % (1.0-10.0) H Eosinophils (%) (Auto) 3.5 % (0.0-3.0) H Basophils (%) (Auto) 1.1 % (0.0-2.0) Sodium Level 141 MMOL/L (136-145) Potassium Level 3.7 MMOL/L (3.5-5.1) Chloride Level 108 MMOL/L (98-107) H Carbon Dioxide Level 24 MMOL/L (21-32) Anion Gap 9 mmol/L (5-15) Blood Urea Nitrogen 11 mg/dL (7-18) Creatinine 0.9 MG/DL (0.55-1.30) Estimat Glomerular Filtration Rate > 60 mL/min (>60) Glucose Level 87 MG/DL (74-106) Calcium Level 8.5 MG/DL (8.5-10.1) Height (Feet): 5 Height (Inches): 11.00 Weight (Pounds): 185 General Appearance: WD/WN, no apparent distress, alert Cardiovascular: normal rate Respiratory/Chest: normal breath sounds, no respiratory distress Abdominal Exam: normal bowel sounds, non tender, soft Extremities: normal range of motion, non-tender Pratik Phipps NP Jul 19, 2018 11:24
[2018-07-19 12:00] VITALS: BP 129/80
--- NOTE | 2018-07-19 12:02 | NUR ---
BOBBIN HANDLERSUPERVISOR COAL HANDLING SI: GI BLEED VS: BP 141/80, P 54, T 99.1, RR 20, SpO2 97 Hgb 12.9, Hct 40.3, Chloride 108 IS: NS x1L IV PROTONIX 40mg IVP MED/SURG STATUS
--- NOTE | 2018-07-19 14:10 | General Progress Note ---
Assessment/Plan Assessment/Plan GI bleed -Endoscopies WNL. DC to SNF. Subjective Allergies: Coded Allergies: No Known Allergies (Unverified , 09/28/13) Subjective No new c/o Objective Last 24 Hour Vital Signs Date Time Temp Pulse Resp B/P (MAP) Pulse Ox O2 Delivery O2 Flow Rate FiO2 07/19/18 12:00 97.7 57 24 129/80 (96) 99 07/19/18 09:32 Room Air 07/19/18 08:01 58 20 141/80 (100) 98 07/19/18 04:00 98.9 54 17 135/80 (98) 96 07/19/18 00:00 98.9 67 18 114/84 (94) 97 07/18/18 21:00 Room Air 07/18/18 20:00 99.1 62 16 117/88 (98) 96 07/18/18 15:55 97.5 64 20 136/88 (104) 99 Intake and Output 07/18/18 07/19/18 19:00 07:00 Intake Total 620 ml 455 ml Output Total 0 ml 500 ml Balance 620 ml -45 ml Intake Oral 420 ml IV Total 200 ml 455 ml Output Urine Total 500 ml Estimated Blood Loss 0 ml # Voids 2 3 Laboratory Tests 07/19/18 06:20: White Blood Count 6.0, Red Blood Count 4.97, Hemoglobin 12.9L, Hematocrit 40.3L , Mean Corpuscular Volume 81, Mean Corpuscular Hemoglobin 25.9L, Mean Corpuscular Hemoglobin Concent 32.0, Red Cell Distribution Width 13.2, Platelet Count 201, Mean Platelet Volume 7.2, Neutrophils (%) (Auto) 33.7L, Lymphocytes ( %) (Auto) 51.6H, Monocytes (%) (Auto) 10.1H, Eosinophils (%) (Auto) 3.5H, Basophils (%) (Auto) 1.1, Sodium Level 141, Potassium Level 3.7, Chloride Level 108H, Carbon Dioxide Level 24, Anion Gap 9, Blood Urea Nitrogen 11, Creatinine 0.9, Estimat Glomerular Filtration Rate > 60, Glucose Level 87, Calcium Level 8.5 Height (Feet): 5 Height (Inches): 11.00 Weight (Pounds): 185 Objective CV RR Lungs CTA Abd SNT. BS +. PEG in Marielena Velarde MD Jul 19, 2018 14:10
--- NOTE | 2018-07-19 14:32 | NUR ---
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
--- NOTE | 2018-07-19 15:00 | NUR ---
*-* NO INSURANCE INFORMATION TO SEND CLINICALS AND REVIEWS *-*
[2018-07-19 16:00] VITALS: BP 130/70
--- NOTE | 2018-07-19 18:30 | NUR ---
NURSE NOTES: Report given to SRIRAM Richter RN at [facility],patient resting,waiting for [facility] to case picker patient.
--- NOTE | 2018-07-19 19:30 | NUR ---
DR Bush called regarding the MRSA Nares,waiting for call back.
--- NOTE | 2018-07-19 19:56 | NUR ---
HAND-OFF: Report given to PRISCA MC.
--- NOTE | 2018-07-19 20:19 | NUR ---
NURSE NOTES: DR Bush aware of MRSA Nares no orders given.
--- NOTE | 2018-07-19 20:25 | NUR ---
NURSE NOTES: patient in bed awake, confused. Kept clean and comfortable. GT noted. Skin is warm and dry to touch. Abdomen is soft and non distended. No complaint of pain or discomfort noted. call light is at bedside.
--- NOTE | 2018-07-19 20:30 | NUR ---
NURSE NOTES: Patient in bed, No s/s of distress noted. Skin is intact. NO belongings noted. IV site removed. ID band removed. Report given to [facility]. All paperwork also given to [facility] personnel.
--- NOTE | 2018-07-21 12:01 | Discharge Summary ---
Discharge Summary Discharge Summary _ DATE OF ADMISSION: 07/15/2018 DATE OF DISCHARGE: 07/19/2018 DISCHARGED BY: Dr. Velarde REASON FOR ADMISSION: 68 years old male with past medical history of type 2 diabetes mellitus, hypertensive cardiovascular disease, coronary artery disease, status post CVA, dysphagia, G-tube, resident of assisted facility , was transferred to emergency department due to coffee-ground emesis for 2 days. Patient by himself nonverbal and was unable to provide any information . All information was obtained from the nursing staff at the facility. Upon evaluation vital signs revealed no fever, mild tachycardia, blood pressure elevated 142/93. Pulse oximetry was 94% on room air. Laboratory workup revealed no leukocytosis, hemoglobin 16.6, electrolytes revealed potassium 5.4. BUN 10 creatinine 0.8, AST 109, ALT 134. Lipase 116. Troponin - 0.012,, EKG revealed sinus tachycardia no acute ischemic changes. Albumin 3.7. Chest x-ray revealed no acute cardiopulmonary pathology. CT scan of abdomen and pelvis revealed no acute abdominopelvic pathology. Patient was admitted for GI bleeding for further management CONSULTANTS: GI specialist Dr. Carrizales [facility]: Patient admitted to medical surgical floor. GI consult was requested. Hemoglobin and hematocrit were stable. Patient started on diet via G-tube as per GI recommendation. Endoscopy was planned on Wednesday to rule out upper GI bleeding. Patient was started on Protonix. Prior chart review and results in 2009 also revealed abnormal liver function test. LFTs were trending, only small trend down noted. Hepatitis panel was positive for hepatitis C. Outpatient treatment for hepatitis C was recommended. Abdominal ultrasound revealed cholelithiasis. Negative for dilated bile ducts. Liver demonstrated normal echogenicity. Patient subsequently undergone upper endoscopy with biopsy on 07/18, which revealed healing Shamika-Wolf tear and gastritis, status post biopsy. Diet was resumed. Biopsy of stomach antrum revealed mild chronic gastritis with focal activity. Negative for Helicobacter infection, negative for intestinal metaplasia, dysplasia or malignancy. G-tube feeding was restarted as per GI recommendation with close monitoring of diet tolerance and strict aspiration/reflux precaution. Patient was continued on PPI. Hemoglobin and hematocrit were closely monitored with goal to keep hemoglobin above 7, remained at the baseline. Bedside swallow evaluation revealed moderate and worsening oropharyngeal dysphagia with left-sided facial droop and weakness. For quality of life, speech therapist recommended continue moist pure with thin liquid diet with strict aspiration/ reflux precaution and one-to-one feeding for oral gratification. Video swallow evaluation can be done as outpatient. Bowel regimen instituted. Patient clinically stabilized and was ready for transfer back to assisted facility for continuation of care FINAL DIAGNOSES: GI bleeding Status post endoscopy Healing Shamika-Wolf tear Gastritis Elevated LFT Hepatitis C Dysphagia G-tube DISCHARGE MEDICATIONS: See Medication Reconciliation list. DISCHARGE INSTRUCTIONS: Patient was discharged to the assisted facility. Follow up with medical doctor at the facility. I have been assigned to dictate discharge summary for this account. I was not involved in the patient's management. Nery uRth NP Jul 21, 2018 12:01
== END 2018-07-19 20:30 | DRG 242 ==
LOC: EDBD 19:53 → EMR 20:05 → 4E 21:15 → EDBEDREQ 22:03
PROC: 0DB78ZX Excision of Stomach, Pylorus, Via Natural or Artificial Opening Endoscopic, Diagnostic (ICD-10-PCS; principal; 2018-07-18 12:26)
DX: K22.6 Gastro-esophageal laceration-hemorrhage syndrome (principal); R13.10 Dysphagia, unspecified; E11.9 Type 2 diabetes mellitus without complications; I11.9 Hypertensive heart disease without heart failure; B19.20 Unspecified viral hepatitis C without hepatic coma; K29.70 Gastritis, unspecified, without bleeding; R79.89 Other specified abnormal findings of blood chemistry; Z43.1 Encounter for attention to gastrostomy; Z86.73 Personal history of transient ischemic attack (TIA), and cerebral infarction without residual deficits; N40.0 Benign prostatic hyperplasia without lower urinary tract symptoms; I25.10 Atherosclerotic heart disease of native coronary artery without angina pectoris; Z79.84 Long term (current) use of oral hypoglycemic drugs; R19.7 Diarrhea, unspecified
CPT/HCPCS: 36415; 71045; 74176; 76700; 80048; 80053; 81003; 82150; 82962; 83690; 83735; 84100; 84484; 85007; 85025; 85610; 85730; 86705; 86709; 86803; 86850; 86900; 86901; 87081; 87340; 94003; 94150; 96374; 96375; 99285; J2405